=== PATIENT | male | born 1930 | race Hispanic/Latino ===

== ENCOUNTER 2017-04-15 16:00 | Emergency (ER) | payer MEDICARE ==
[2017-04-15 16:09] VITALS: TEMP 97.7
[2017-04-15] MEDS ORDERED: TDAP Vaccine 0.5 mL Syr IM ONE (16:24)
[2017-04-15] MEDS ORDERED: Morphine 2 mg/ml ISec IM STA (16:24)
--- NOTE | 2017-04-15 16:28 | ED PDOC ---
Arrival/HPI - General Chief Complaint: Trauma Time Seen by Provider: 04/15/17 16:03 - History of Present Illness Narrative History of Present Illness (Text): 86 y/o M c PMHx HTN, on ASA 81 p/w fall just prior to arrival. Patient states while cleaning leaves in driveway, slipped and fell backward and struck the back of his head. He denies preceding chest pain, dyspnea, or dizziness. He denies LOC, nausea, vomiting, or confusion. Now complaining of pains to back of head, bilateral neck, R lower back and notes abrasions to L forearm and hematoma to scalp. Past Medical History - Cardiac Hx Hypertension: Yes - Pulmonary Hx Respiratory Disorders: No - Neurological Hx Neurological Disorder: Yes Other/Comment: NEUROPATHY - HEENT Hx HEENT Disorder: No - Renal Hx Renal Disorder: No - Endocrine/Metabolic Hx Endocrine Disorders: No - Hematological/Oncological Hx Cancer: Yes (prostate, with radiation) - Integumentary Hx Dermatological Disorder: No - Musculoskeletal/Rheumatological Hx Back Pain: Yes - Gastrointestinal Hx Gastroesophageal Reflux: Yes - Genitourinary/Gynecological Hx Prostate Cancer: Yes - Psychiatric Hx Psychophysiologic Disorder: No Hx Substance Use: No - Surgical History Other/Comment: BX OF PROSTATE Family/Social History Family/Social History: No Known Family HX Smoking Status: Never Smoked Hx Alcohol Use: No Hx Substance Use: No Allergies/Home Meds Allergies/Adverse Reactions: Allergies No Known Allergies Allergy (Verified 04/15/17 16:02) Home Medications: Home Meds Medication Instructions Recorded Confirmed Losartan [Cozaar] 100 mg PO DAILY 04/15/17 04/15/17 Metoprolol Tartrate [Lopressor] 25 mg PO BID 04/15/17 04/15/17 Simvastatin [Zocor] 10 mg PO DAILY 04/15/17 04/15/17 Review of Systems - Physician Review All systems were reviewed & negative as marked: Yes - Review of Systems Eyes: absent: Vision Changes Gastrointestinal: absent: Vomiting Physical Exam - Physical Exam Narrative Physical Exam (Text): Constitutional: No acute distress. Head: Normocephalic. Parietal hematoma with central abrasion, no laceration. Eyes: PERRL. EOMI. ENT: Moist mucous membranes. Neck: Supple. No midline tendernss. Bilateral paracervical tenderness. FROM. Cardiovascular: Regular rate. Radial pulse 2+ bilaterally. Chest: No tenderness. Tenderness of soft tissue on L superior to clavicle. No clavicular or rib tenderness. Respiratory: Equal breath sounds bilaterally. GI: Soft. Nontender. Nondistended. Back: No midline tenderness. R lumbar paraspinal tenderness. Musculoskeletal: No tenderness or swelling of extremities. FROM x 4. Skin: Hematoma as above. Abrasion to L forearm. Neurologic: Alert, no focal deficit. Gait steady. Vital Signs Temp Pulse Resp BP Pulse Ox 04/15/17 17:41 56 L 18 122/58 L 98 04/15/17 16:04 97.7 F 60 16 122/75 99 Medical Decision Making ED Course and Treatment: Tetanus updated. Morphine IM for pain. Imaging for trauma. 04/15/17 18:25 CT C SPINE IMPRESSION: 1. No acute findings related to/accounting for the clinical presentation. 2. Multilevel degenerative changes. 3. Incidental finding(s): Lucency, lytic focus 7.4 mm associate with the lamina at at the level of C5 on the left. There are no additional lytic or blastic abnormalities apparent on the present study CT HEAD IMPRESSION: No acute intracranial pathology identified. 04/15/17 18:42 CXR/Pelvis/LS Spine XRs negative for fracture, dislocation, pleural effusion, pneumothorax. Patient states pain improved. Will discharge, f/u PMD, return to ED for worsening pain, dyspnea, vomiting, lethargy, or any other problem. Patient has f/u with Dr. Owusu tomorrow. Will prescribe tramadol for break through pain if needed. Discussed risks of this medication. - RAD Interpretation Radiology Orders: 04/15/17 16:25 CERVICAL SPINE W/O CONTRAST [CT] Stat HEAD W/O CONTRAST [CT] Stat CHEST ONE VIEW [RAD] Stat PELVIS ONE VIEW [RAD] Stat 04/15/17 16:28 LS SPINE AP/LAT [RAD] Stat - Medication Orders Current Medication Orders: Discontinued Medications Morphine Sulfate (Morphine) 2 mg IM STAT STA Stop: 04/15/17 16:25 Last Admin: 04/15/17 17:33 Dose: 2 mg KACEY Pain Assessment Document 04/15/17 17:33 SF (Rec: 04/15/17 17:33 SF [id number]) Pain Reassessment Is this a pain reassessment? Yes Sleep Is patient sleeping during reassessment? No Presence of Pain Presence of Pain Yes IM Administration Charges Document 04/15/17 17:33 SF (Rec: 04/15/17 17:33 [id number]) Injection Site MAR Injection Site Left Deltoid Charges for Administration # of IM Administrations 1 Tetanus/Reduced Diphtheria/Acell Pertussis (Boostrix Vaccine Inj) 0.5 ml IM .ONCE ONE Stop: 04/15/17 16:25 Last Admin: 04/15/17 17:33 Dose: 0.5 ml Immunization Registry Document 04/15/17 17:33 SF (Rec: 04/15/17 17:34 [id number]) Immunization Registry Consent Date 04/15/17 Disposition/Present on Arrival - Present on Arrival Any Indicators Present on Arrival: No History of DVT/PE: No History of Uncontrolled Diabetes: No Urinary Catheter: No History of Decub. Ulcer: No History Surgical Site Infection Following: None - Disposition Have Diagnosis and Disposition been Completed?: Yes Diagnosis: Hematoma, Abrasion Disposition: HOME/ ROUTINE Disposition Time: 18:44 Patient Plan: Discharge Condition: STABLE Discharge Instructions (ExitCare): Abrasion (ED), Head Injury (ED) Prescriptions: traMADol [Ultram] 50 mg PO Q8H #15 tab Referrals: Zev Owusu MD [Primary Care Provider] - Follow up with primary Forms: [employer] ([place])
[2017-04-15 17:41] VITALS: O2SAT 98
--- NOTE | 2017-04-15 18:14 | CT ---
PROCEDURE: CT HEAD WITHOUT CONTRAST. HISTORY: fall, headstrike COMPARISON: None available. TECHNIQUE: Axial computed tomography images were obtained through the head/brain without intravenous contrast. Radiation dose: Total exam DLP = 775.01 mGy-cm. This CT exam was performed using one or more of the following dose reduction techniques: Automated exposure control, adjustment of the mA and/or kV according to patient size, and/or use of iterative reconstruction technique. FINDINGS: HEMORRHAGE: No intracranial hemorrhage. BRAIN: Diffuse atrophy with prominence of the ventricles and sulci noted. No mass effect or edema. Mild scattered white matter hypodensities, which are nonspecific, but often seen with chronic microvascular ischemic disease. Please note that MRI with diffusion imaging is more sensitive in the detection of acute ischemic event. VENTRICLES: No hydrocephalus. CALVARIUM: Unremarkable. PARANASAL SINUSES: Unremarkable as visualized. No significant inflammatory changes. MASTOID AIR CELLS: Unremarkable as visualized. No inflammatory changes. OTHER FINDINGS: None. IMPRESSION: No acute intracranial pathology identified.
--- NOTE | 2017-04-15 18:19 | CT ---
PROCEDURE: CT Cervical Spine without contrast HISTORY: Trauma COMPARISON: None available. TECHNIQUE: Axial computed tomography images were obtained of the cervical spine without the use of intravenous contrast. Coronal and sagittal reformatted images were created and reviewed. Radiation dose: Total exam DLP = 511.04 mGy-cm. This CT exam was performed using one or more of the following dose reduction techniques: Automated exposure control, adjustment of the mA and/or kV according to patient size, and/or use of iterative reconstruction technique. FINDINGS: VERTEBRAE: No fracture. Normal alignment. Lucency affecting the lamina on the left L5 vertebral body. The etiology, significance uncertain. The area of interest measures 7.4 mm DISCS/SPINAL CANAL/NEURAL FORAMINA: Multilevel degenerative changes primarily disc degenerative change, disc space narrowing mid and lower cervical spine. 2 mm retrolisthesis C5-C6. Uncovertebral hypertrophy noted at multiple levels. PARASPINAL SOFT TISSUES: Unremarkable. OTHER FINDINGS: None. IMPRESSION: 1. No acute findings related to/accounting for the clinical presentation. 2. Multilevel degenerative changes. 3. Incidental finding(s): Lucency, lytic focus 7.4 mm associate with the lamina at at the level of C5 on the left. There are no additional lytic or blastic abnormalities apparent on the present study
[2017-04-15 19:07] VITALS: BP 124/70; PULSE 60; RESP 17
--- NOTE | 2017-04-16 08:23 | RAD ---
PROCEDURE: CHEST RADIOGRAPH, 1 VIEW HISTORY: fall COMPARISON: 08/14/2013. FINDINGS: LUNGS: Clear. PLEURA: No pneumothorax or pleural fluid seen. CARDIOVASCULAR: Normal. OSSEOUS STRUCTURES: No significant abnormalities. VISUALIZED UPPER ABDOMEN: Normal. OTHER FINDINGS: None. IMPRESSION: No active disease. Concordant results with the preliminary interpretation rendered by the emergency department physician procedure.
--- NOTE | 2017-04-16 08:29 | RAD ---
PROCEDURE: Radiographs of the pelvis. HISTORY: fall COMPARISON: None. FINDINGS: BONES: Pelvic Bones: Unremarkable. Hips: Grossly unremarkable. JOINTS: Sacroiliac Joints: Unremarkable. Pubic Symphysis: Unremarkable. OTHER FINDINGS: None. IMPRESSION: No acute findings related to/accounting for the clinical presentation. Concordant results with the preliminary interpretation rendered by the emergency department physician procedure.
--- NOTE | 2017-04-16 08:30 | RAD ---
PROCEDURE: Radiographs of the Lumbar Spine. HISTORY: back pain, fall COMPARISON: No prior. FINDINGS: BONES: Scoliosis, secondary degenerative change. Sclerotic focus L2 vertebral body likely benign/ bone island. DISC SPACES: Degenerative change, vacuum disc phenomenon L5-S1. Multilevel non marginal osteophyte formation. OTHER FINDINGS: None. IMPRESSION: No acute findings related to/accounting for the clinical presentation. Additional benign and/or incidental findings described above. Concordant results with the preliminary interpretation rendered by the emergency department physician procedure.
== END 2017-04-15 18:45 | disposition home or self-care (01) ==
LOC: ED 16:00
DX: S00.83XA Contusion of other part of head, initial encounter (principal); S50.812A Abrasion of left forearm, initial encounter; W01.0XXA Fall on same level from slipping, tripping and stumbling without subsequent striking against object, initial encounter; Y93.E5 Activity, floor mopping and cleaning; Y92.008 Other place in unspecified non-institutional (private) residence as the place of occurrence of the external cause; Z23 Encounter for immunization
CPT/HCPCS: 70450; 71010; 72100; 72125; 72170; 90471; 90715; 96372; 99285; J2270

== ENCOUNTER 2017-10-21 15:20 | Emergency (ER) | payer MEDICARE ==
--- NOTE | 2017-10-21 15:48 | ED PDOC ---
Arrival/HPI - General Chief Complaint: Chest Pain Time Seen by Provider: 10/21/17 15:26 Historian: Patient - History of Present Illness Narrative History of Present Illness (Text): 10/21/17 15:44 86 year old male, whose history includes hypertension and high cholesterol, send from Dr. Owusu' office presents to the Emergency department complaining of cough with white phlegm, shortness of breath, and chest pressure for 4 days. Patient states that after he coughs, most of the symptoms resolve but a subtle chest pressure remains. Patient also complains of nasal congestion, rhinorrhea, sore throat, and chills. Patient denies any fever, body aches, nausea, vomiting , diarrhea, urinary symptoms, back pain, neck pain, headache, dizziness, or any other complaints. Time/Duration: < week (4 days) Symptom Onset: Gradual Symptom Course: Unchanged Context: Home Past Medical History - Provider Review Nursing Documentation Reviewed: Yes - Infectious Disease Hx of Infectious Diseases: None - Cardiac Hx Hypertension: Yes - Pulmonary Hx Asthma: Yes - Neurological Hx Neurological Disorder: Yes Other/Comment: NEUROPATHY - HEENT Hx HEENT Disorder: No - Renal Hx Renal Disorder: No - Endocrine/Metabolic Hx Endocrine Disorders: No - Hematological/Oncological Hx Cancer: Yes (prostate, with radiation) - Integumentary Hx Dermatological Disorder: No - Musculoskeletal/Rheumatological Hx Back Pain: Yes - Gastrointestinal Hx Gastroesophageal Reflux: Yes - Genitourinary/Gynecological Hx Prostate Cancer: Yes - Psychiatric Hx Psychophysiologic Disorder: No Hx Substance Use: No - Surgical History Other/Comment: BX OF PROSTATE Family/Social History - Physician Review Nursing Documentation Reviewed: Yes Family/Social History: Unknown Family HX Smoking Status: Never Smoked Hx Alcohol Use: No Hx Substance Use: No Allergies/Home Meds Allergies/Adverse Reactions: Allergies No Known Allergies Allergy (Verified 10/21/17 15:38) Home Medications: Home Meds Medication Instructions Recorded Confirmed Losartan [Cozaar] 100 mg PO DAILY 04/15/17 10/21/17 Metoprolol Tartrate [Lopressor] 25 mg PO BID 04/15/17 10/21/17 Simvastatin [Zocor] 10 mg PO DAILY 04/15/17 10/21/17 Montelukast [Singulair] 10 mg PO DAILY 10/21/17 10/21/17 Omeprazole 1 tab PO DAILY 10/21/17 10/21/17 Review of Systems - Physician Review All systems were reviewed & negative as marked: Yes - Review of Systems Constitutional: absent: Fevers ENT: Sore Throat, Rhinorrhea, Sinus Congestion Respiratory: SOB, Cough, Sputum Cardiovascular: Chest Pain (chest pressure) Gastrointestinal: absent: Diarrhea, Nausea, Vomiting Genitourinary Male: absent: Dysuria Musculoskeletal: absent: Back Pain, Neck Pain, Myalgias Neurological: absent: Headache, Dizziness Physical Exam Vital Signs Reviewed: Yes - Systems Exam Head: Present: Atraumatic, Normocephalic Pupils: Present: PERRL Extroacular Muscles: Present: EOMI Conjunctiva: Present: Normal Mouth: Present: Moist Mucous Membranes Pharnyx: Present: Normal. No: ERYTHEMA, EXUDATE Neck: Present: Normal Range of Motion Respiratory/Chest: Present: Clear to Auscultation, Good Air Exchange. No: Respiratory Distress, Accessory Muscle Use Cardiovascular: Present: Regular Rate and Rhythm, Normal S1, S2. No: Murmurs Abdomen: No: Tenderness, Distention, Peritoneal Signs Back: Present: Normal Inspection Upper Extremity: Present: Normal Inspection. No: Cyanosis, Edema Lower Extremity: Present: Normal Inspection. No: Edema Neurological: Present: GCS=15, CN II-XII Intact, Speech Normal Skin: Present: Warm, Dry, Normal Color. No: Rashes Psychiatric: Present: Alert, Oriented x 3, Normal Insight, Normal Concentration Medical Decision Making ED Course and Treatment: 10/21/17 15:51 Impression: 86 year old male presents to the Emergency department complaining of cough, shortness of breath, and chest pressure for 4 days. Differential Diagnosis included but are not limited to: Bronchitis, rule out pneumonia. Less likely, ACS. Plan: -- Chest xray -- EKG -- Blood culture -- Urinalysis -- Rapid flu, rapid strep -- Labs -- Reassess and disposition Prior Visits: Notes and results from previous visits were reviewed. Patient was last seen in the emergency department on 04/15/17 for a mechanical fall. Patient was diagnosed with hematoma and abrasion and was discharged home. Progress Notes: 10/21/17 18:17 Discussed case in detail with patient's PMD, Dr. Owusu. he reviewed the EKG and states that it is the patient's baseline; there are no changes. He recommends to contact Dr. Martel, tow mate. Patient was offered admission for observation of cardiac but he does not want to stay in the hospital. Discussed case in detail with Dr. Martel, tow mate. Agrees for patient to go home and follow up in his office. Patient is currently asymptomatic and is requesting antibiotics. Will discharge the patient home with a followup to tow mate and PMD. - Lab Interpretations Lab Results: 10/21/17 16:00 10/21/17 16:00 Lab Results 10/21/17 16:30: Influenza Typ A,B (EIA) Negative for flu a/b 10/21/17 16:30: Grp A Beta Strep Ag Negative 10/21/17 16:00: Sodium 138, Potassium 4.4, Chloride 100, Carbon Dioxide 29, Anion Gap 14, BUN 20, Creatinine 0.8, Est GFR ( Amer) > 60, Est GFR (Non- Af Amer) > 60, Random Glucose 86, Calcium 9.0, Magnesium 2.2, Total Bilirubin 0.5, AST 32, ALT 37, Alkaline Phosphatase 65, Lactate Dehydrogenase 387, Total Creatine Kinase 50, Troponin I < 0.01, Total Protein 6.6, Albumin 3.7, Globulin 2.8, Albumin/Globulin Ratio 1.3 10/21/17 16:00: PT 13.1 H, INR 1.15 H, APTT 29.0 10/21/17 16:00: WBC 4.0 L, RBC 4.04, Hgb 12.1 L, Hct 36.9 L, MCV 91.3, MCH 30.0 , MCHC 32.8, RDW 13.7, Plt Count 141, MPV 9.6, Gran % 58.7, Lymph % (Auto) 26.6 , [place] % (Auto) 10.0 H, Eos % (Auto) 4.0, Baso % (Auto) 0.7, Gran # 2.36, Lymph # (Auto) 1.1 L, [place] # (Auto) 0.4, Eos # (Auto) 0.2, Baso # (Auto) 0.03 - RAD Interpretation Narrative RAD Interpretations (Text): 10/21/2017 15:50:13 Chest X-ray FINDINGS: LUNGS: No active pulmonary disease. PLEURA: No significant pleural effusion identified, no pneumothorax apparent. CARDIOVASCULAR: Normal. OSSEOUS STRUCTURES: No significant abnormalities. VISUALIZED UPPER ABDOMEN: Normal. OTHER FINDINGS: None. IMPRESSION: No active disease. Radiology Orders: 10/21/17 15:34 CHEST PORTABLE [RAD] Stat - EKG Interpretation EKG Interpretation (Text): 10/21/17 16:06 EKG: Ordered, reviewed, and independently interpreted the EKG. Rate : 56 BPM Rhythm : Sinus bradycardia Interpretation : 1st degree AV block. Interpreted by ED Physician: Yes Type: 12 lead EKG - Medication Orders Current Medication Orders: Discontinued Medications Azithromycin (Zithromax) 500 mg PO STAT STA PRN Reason: Protocol Stop: 10/21/17 18:07 Last Admin: 10/21/17 18:20 Dose: 500 mg - Scribe Statement The provider has reviewed the documentation as recorded by the [employer] [facility] Provider Scribe Attestation: All medical record entries made by the Scribe were at my direction and personally dictated by me. I have reviewed the chart and agree that the record accurately reflects my personal performance of the history, physical exam, medical decision making, and the department course for this patient. I have also personally directed, reviewed, and agree with the discharge instructions and disposition. Disposition/Present on Arrival - Present on Arrival Any Indicators Present on Arrival: No History of DVT/PE: No History of Uncontrolled Diabetes: No Urinary Catheter: No History of Decub. Ulcer: No History Surgical Site Infection Following: None - Disposition Have Diagnosis and Disposition been Completed?: Yes Diagnosis: Upper respiratory infection Disposition: HOSPITALIZED Disposition Time: 18:15 Patient Plan: Discharge Patient Problems: Current Active Problems Problem Status Onset Upper respiratory infection Acute Condition: IMPROVED Additional Instructions: Ms Reina, thank you for letting us take care of you today. Your provider was Dr. Damian. You were treated for Upper Respiratory Infection. The emergency medical care you received today was directed at your acute symptoms. If you were prescribed any medication, please fill it and take as directed. It may take several days for your symptoms to resolve. Return to the Emergency Department if your symptoms worsen, do not improve, or if you have any other problems. Please contact your doctor or call one of the physicians/clinics you have been referred to that are listed on the Patient Visit Information form that is included in your discharge packet. Bring any paperwork you were given at discharge with you along with any medications you are taking to your follow up visit. Our treatment cannot replace ongoing medical care by a primary care provider (PCP) outside of the emergency department. Thank you for allowing the [facility] team to be part of your care today. If you had an X-Ray or CT scan: A Radiologist will review the ED reading if any change in treatment is needed we will contact you. If you had a blood, urine, or wound culture: It will take several days for the results, if any change in treatment is needed we will contact you. If you had an STI test: It will take 48 hours for the results. Please call after 1 week if you have not heard back. Prescriptions: Albuterol HFA [Ventolin HFA 90 mcg/actuation (8 g)] 2 puff IH Q4 #1 puff Azithromycin 250 mg PO DAILY #4 tab Referrals: Zev Owusu MD [Staff Provider] - Follow up with primary Gregor Gonzalez MD [Staff Provider] - Follow up with primary Forms: [employer] ([place])
--- NOTE | 2017-10-21 15:52 | RAD ---
HISTORY: chest pain COMPARISON: 04/15/2017 FINDINGS: LUNGS: No active pulmonary disease. PLEURA: No significant pleural effusion identified, no pneumothorax apparent. CARDIOVASCULAR: Normal. OSSEOUS STRUCTURES: No significant abnormalities. VISUALIZED UPPER ABDOMEN: Normal. OTHER FINDINGS: None. IMPRESSION: No active disease.
[2017-10-21 17:02] LABS: BASO # 0.03 K/mm3 (0.0-2.0); BASO % 0.7 % (0.0-3.0); EOS # 0.2 (0.0-0.7); GRAN # 2.36 (1.4-6.5); GRAN % 58.7 % (50.0-68.0); HEMOGLOBIN 12.1 g/dL (14.0-18.0); LYMPH # 1.1 (1.2-3.4); LYMPH % 26.6 % (22.0-35.0); MEAN CELL VOLUME 91.3 fl (80.0-105.0); MEAN CORPUSCULAR HGB CONC 32.8 g/dl (31.0-37.0); MEAN PLATELET VOLUME 9.6 fl (7.0-11.0); MONO # 0.4 (0.1-0.6); RBC 4.04 10^6/uL (3.5-6.1); RED CELL DISTRIBUTION WIDTH 13.7 % (11.5-14.5)
[2017-10-21 17:10] LABS: INR 1.15 (0.93-1.08); PROTHROMBIN TIME 13.1 SECONDS (9.4-12.5)
[2017-10-21 17:11] LABS: ALB/GLOB RATIO 1.3 (1.1-1.8); ALBUMIN 3.7 g/dL (3.0-4.8); ALT/SGPT 37 U/L (7-56); AST/SGOT 32 U/L (17-59); BLOOD UREA NITROGEN 20 mg/dL (7-21); GFR AFRICAN-AMERICAN > 60; GFR NON-AFRICAN AMERICAN > 60
[2017-10-21 17:22] LABS: TROPONIN I < 0.01 ng/mL
[2017-10-21 18:25] VITALS: O2SAT 99
[2017-10-21 18:39] LABS: URINE BILIRUBIN NEGATIVE (NEGATIVE); URINE BLOOD NEGATIVE (NEGATIVE); URINE GLUCOSE (UA) NEGATIVE (NEGATIVE); URINE LEUKOCYTE ESTERASE NEGATIVE Leu/uL (NEGATIVE); URINE PROTEIN NEGATIVE mg/dL (<30 mg/dL); URINE UROBILINOGEN 0.2 E.U./dL (<1 E.U./dL)
[2017-10-21 18:41] LABS: URINE APPEARANCE CLEAR (CLEAR); URINE COLOR YELLOW (YELLOW)
[2017-10-22 02:31] VITALS: TEMP 98
[2017-10-22 02:32] VITALS: BP 130/78; PULSE 61; RESP 18
--- NOTE | 2017-10-22 07:52 | CARD ---
APPROVED REPORT EKG Measurement Heart [id number] ID [id number] <Conclusion> Sinus bradycardia with 1st degree AV block Otherwise normal ECG
== END 2017-10-21 18:30 | disposition home or self-care (01) ==
LOC: ED 15:20
DX: J06.9 Acute upper respiratory infection, unspecified (principal); E78.00 Pure hypercholesterolemia, unspecified; I10 Essential (primary) hypertension

== ENCOUNTER 2018-10-07 09:06 | Outpatient (CLI) | payer MEDICARE | END 2018-10-07 09:07 | disposition home or self-care (01) | LOC: RAD 09:06 ==

== ENCOUNTER 2018-10-11 07:41 | Outpatient (CLI) | payer MEDICARE | END 2018-10-11 07:42 | disposition home or self-care (01) | LOC: RAD 07:41 ==